=== PATIENT | male | born 1940 | race Caucasian/White ===

== ENCOUNTER 2019-01-05 20:07 | Emergency (ER) | payer MEDICARE, BC ==
[2019-01-05] MEDS ORDERED: Cephalexin 500 MG Cap PO ONE (20:43)
--- NOTE | 2019-01-05 20:46 | EDM.PDOC ---
ED HPI GENERAL MEDICAL PROBLEM - General Stated Complaint: HURT HAND Time Seen by Provider: 01/05/19 20:30 Source of Information: Reports: Patient History Limitations: Reports: No Limitations - History of Present Illness INITIAL COMMENTS - FREE TEXT/NARRATIVE: Was fishing off a bridge tonight, caught his line and pulled hard, as it flung back adamant about her struck the back of his hand hard. Bled quite significantly for a little while, dark red and purple blood. No significant swelling on the back of his hand so he was worried and came in to be evaluated. Very small open abrasion with a large hematoma underlying. Only on aspirin as a blood thinner. He has pain in his bruise area and the skin feels tight, but he can move all of his fingers without difficulty and has full sensation throughout his hand. - Related Data Allergies Allergy/AdvReac Type Severity Reaction Status Date / Time No Known Allergies Allergy Verified 04/10/13 13:46 Home Meds: Home Meds Allopurinol [Zyloprim] 100 mg PO DAILY 04/10/13 [History] Alprostadil 1 gm RECTAL DAILY PRN 04/10/13 [History] Benzonatate [Tessalon Perle] 100 mg PO TID PRN 04/10/13 [History] Clotrimazole/Betamethasone Dip [Lotrisone Cream] 15 gm TP 04/10/13 [History] Doxazosin Mesylate [Cardura] 4 mg PO DAILY 04/10/13 [History] Finasteride [Proscar] 5 mg PO DAILY 04/10/13 [History] Furosemide [Lasix] 40 mg PO DAILY 04/10/13 [History] Hydrocodone/Acetaminophen [[place] 5-325] 1 tab PO Q4H PRN 04/10/13 [History] Levothyroxine [Synthroid] 50 mcg PO DAILY 04/10/13 [History] Pilocarpine HCl [Salagen] 5 mg PO TID 04/10/13 [History] Pioglitazone [Actos] 45 mg PO DAILY 04/10/13 [History] Potassium Chloride [Potassium Chloride Solution] 10 meq PO DAILY 04/10/13 [ History] Simvastatin [Zocor] 20 mg PO BEDTIME 04/10/13 [History] SitaGLIPtin [Januvia] 100 mg PO DAILY 04/10/13 [History] metFORMIN [Glucophage] 1,000 mg PO BIDM 04/10/13 [History] Aspirin [Adult Low Dose Aspirin EC] 81 mg PO DAILY 04/13/13 [History] cephALEXin [Keflex] 500 mg PO BID 2 Days #4 cap 01/05/19 [Rx] Social & Family History - Family History Family Medical History: Noncontributory ED ROS GENERAL - Review of Systems Review Of Systems: ROS reveals no pertinent complaints other than HPI. ED EXAM, GENERAL - Physical Exam Exam: See Below Free Text/Narrative:: Gen.: Alert, very pleasant no acute distress. There is a 3 x 4 cm hematoma on the dorsal surface of the hand with a 2-3 mm hole where the skin broke. It is not actively bleeding. He is able to flex and extend all of his fingers without difficulty and has full strength in all all of his fingers and thumb. Likewise he is able to flex and extend the wrist without difficulty. He does not note significant pain, although does complain that the skin is tight. Sensation is intact to both sides of all 5 of his fingers. Course - Vital Signs Text/Narrative:: Superficial wound, given mechanism I don't think that an x-ray is indicated as he has no pain with movement of his fingers or hand, just skin tightness. He cleansed the wound with hydrogen peroxide shortly after it happened, nursing instructed to soak in Hibiclens here then bandaged with Steri-Strips. Last tetanus unknown so we'll update tonight. Plan is to give 1 dose of Keflex prior to departure and then 2 days given the size of the hematoma I think it is appropriate to prophylax it. Last Recorded V/S: Last Vital Signs Temp 36.6 C 01/05/19 20:10 Pulse 58 L 01/05/19 20:10 Resp 20 01/05/19 20:10 BP 134/59 L 01/05/19 20:10 Pulse Ox 100 01/05/19 20:10 - Orders/Labs/Meds Orders: Active Orders 24 hr Category Date Time Status Vaccines to be Administered [RC] PER UNIT ROUTINE Care 01/05/19 20:50 Active Meds: Medications Discontinued Medications Generic Name Dose Route Start Last Admin Trade Name Freq PRN Reason Stop Dose Admin Cephalexin 500 mg 01/05/19 20:43 01/05/19 21:01 Keflex PO 01/05/19 20:44 500 mg ONETIME ONE Administration Tetanus/Diphtheria Toxoids 0.5 ml 01/05/19 20:50 01/05/19 21:00 Tenivac IM 01/05/19 20:51 0.5 ml .ONCE ONE Administration - Re-Assessments/Exams Free Text/Narrative Re-Assessment/Exam: 01/05/19 21:12 hand soaked in hibiclens, then bandaged with steri-strips and covered with ointment and bandaid. Wound care instructions given and discussed signs of infection. Tetanus updated. 2 days prophylaxis of keflex ordered. Patient expresses understanding of instructions and all questions answered. Departure - Departure Time of Disposition: 21:10 Disposition: Home, Self-Care 01 Condition: Good Clinical Impression: Contusion - Discharge Information *PRESCRIPTION DRUG MONITORING PROGRAM REVIEWED*: Not Applicable *COPY OF PRESCRIPTION DRUG MONITORING REPORT IN PATIENT TI: Not Applicable Prescriptions: cephALEXin [Keflex] 500 mg PO BID 2 Days #4 cap Referrals: PCP,None [Primary Care Provider] - Additional Instructions: steri strips will come off on their own in 4-5 days change bandaid as needed like 1X/day in evening and appy new ointment to keep wound protected. Be careful not to tear skin when removing bandaid. if worsening pain, bright colored redness around the wound, pus, or significant increase in swelling should get rechecked If pain when moving her fingers, hand or wrist you should return to the ED. Also return if there is red streaking up her arm or any difficulty and swelling in any of the joints. tetanus updated today antibiotic given to help prevent infection, take 1 dose each morning and night for next two days enjoy your fishing and be careful of the big one ;) - My Orders Last 24 Hours: My Active Orders 01/05/19 20:50 Vaccines to be Administered [RC] PER UNIT ROUTINE - Assessment/Plan Last 24 Hours: My Active Orders 01/05/19 20:50 Vaccines to be Administered [RC] PER UNIT ROUTINE
[2019-01-05 20:49] VITALS: BP 134/59
[2019-01-05] MEDS ORDERED: Diphtheria/Tetanus Toxoids,Adult (Td) 0.5 ML SDV IM ONE (20:50)
== END 2019-01-05 21:25 | disposition home or self-care (01) ==
LOC: FB.ED 20:07
DX: S60.221A Contusion of right hand, initial encounter (principal); Z79.899 Other long term (current) drug therapy; X58.XXXA Exposure to other specified factors, initial encounter
CPT/HCPCS: 90471; 90714; 99283; A9270

== ENCOUNTER 2019-10-18 10:44 | Emergency (ER) | payer MEDICARE, BC ==
[2019-10-18] MEDS ORDERED: Sodium Chloride 0.9% 500 ML IV ONE ×2 (11:02→11:30)
[2019-10-18] MEDS ORDERED: Sodium Chloride 0.9% 10 ML Syringe FLUSH PRN (11:02)
--- NOTE | 2019-10-18 11:06 | EDM.PDOC ---
ED HPI GENERAL MEDICAL PROBLEM - General Chief Complaint: Cardiovascular Problem Stated Complaint: LOW BLOOD PRESSURE,PULSE HIGH Time Seen by Provider: 10/18/19 11:04 Source of Information: Reports: Patient History Limitations: Reports: No Limitations - History of Present Illness INITIAL COMMENTS - FREE TEXT/NARRATIVE: Patient awoke with low blood pressure (SBP 70-80) and rapid heart rate (188). He complains of mild dizziness. Denies chest pain, shortness of breath, fevers, chills, abdominal pain, or N/V/D. He has a slight cough after eating, but this usually quickly resolves. Lasix and Metoprolol were discontinued two days ago due to low BP. Patient has a h/o T2DM, hyperlipidemia, hypothyroidism, and metastatic urethral carcinoma. Last chemo was 2 weeks ago. Denies recent travel or exposure to known COVID-19 PUI. Onset: Today Severity: Moderate - Related Data Allergies Allergy/AdvReac Type Severity Reaction Status Date / Time No Known Allergies Allergy Verified 01/06/19 00:57 Home Meds: Home Meds Benzonatate [Tessalon Perle] 100 mg PO TID PRN 04/10/13 [History] Clotrimazole/Betamethasone Dip [Lotrisone Cream] 15 gm TP ASDIRECTED 04/10/13 [ History] Doxazosin Mesylate [Cardura] 2 mg PO DAILY 04/10/13 [History] Finasteride [Proscar] 5 mg PO DAILY 04/10/13 [History] Hydrocodone/Acetaminophen [[place] 5-325] 1 tab PO Q4H PRN 04/10/13 [History] Pilocarpine HCl [Salagen] 5 mg PO TID 04/10/13 [History] SitaGLIPtin [Januvia] 100 mg PO DAILY 04/10/13 [History] metFORMIN [Glucophage] 1,000 mg PO BIDM 04/10/13 [History] Levothyroxine [Synthroid] 100 mcg PO ACBREAKFAST 10/18/19 [History] Pioglitazone [Actos] 15 mg PO DAILY 10/18/19 [History] Past Medical History Cardiovascular History: Reports: High Cholesterol, Hypertension. Denies: Arrhythmia, Heart Failure Endocrine/Metabolic History: Reports: Diabetes, Type II Oncologic (Cancer) History: Reports: Other (See Below) (Urethral) - Past Surgical History HEENT Surgical History: Reports: Cataract Surgery GI Surgical History: Reports: Other (See Below) Other GI Surgeries/Procedures: States history of hernia surgery. Neurological Surgical History: Reports: Other (See Below) Other Neurological Surgeries/Procedures: Back surgery in [place]. Oncologic Surgical History: Reports: Other (See Below) Other Oncologic Surgeries/Procedures: Cancer of jaw area. Social & Family History - Family History Family Medical History: Noncontributory - Tobacco Use Smoking Status *Q: Former Smoker - Alcohol Use Alcohol Use History: No ED ROS GENERAL - Review of Systems Review Of Systems: Comprehensive ROS is negative, except as noted in HPI. ED EXAM, GENERAL - Physical Exam Exam: See Below Exam Limited By: No Limitations General Appearance: Alert, WD/WN, No Apparent Distress Nose: Normal Inspection Throat/Mouth: Normal Inspection, No Airway Compromise Head: Atraumatic, Normocephalic Neck: Supple Respiratory/Chest: No Respiratory Distress, Lungs Clear, Normal Breath Sounds Cardiovascular: No Murmur, Tachycardia GI/Abdominal: Normal Bowel Sounds, Soft, Non-Tender, No Distention Back Exam: Full Range of Motion Extremities: Normal Range of Motion, Pedal Edema Neurological: Alert, Oriented, No Motor/Sensory Deficits Psychiatric: Normal Affect, Normal Mood Skin Exam: Warm, Dry, Intact EKG INTERPRETATION EKG Date: 10/18/19 Time: 10:58 Rhythm: A-Fib Rate (Beats/Min): 129 [place]: Normal P-Wave: Absent QRS: Normal ST-T: Depressed (minimal) QT: Normal Comparison: NA - No Prior EKG Course - Vital Signs Last Recorded V/S: Last Vital Signs Temp 36.9 C 10/18/19 10:55 Pulse 125 H 10/18/19 13:27 Resp 24 H 10/18/19 14:27 BP 94/64 10/18/19 14:27 Pulse Ox 97 10/18/19 14:27 - Orders/Labs/Meds Orders: Active Orders 24 hr Category Date Time Status EKG Documentation Completion [RC] ASDIRECTED Care 10/18/19 11:01 Active CXR [Chest 1V Frontal] [CR] Stat Exams 10/18/19 11:01 Taken CULTURE BLOOD [BC] Urgent Lab 10/18/19 11:35 Received CULTURE BLOOD [BC] Urgent Lab 10/18/19 11:40 Received THYROXINE (T4) FREE, DIRECT, S Stat Lab 10/18/19 11:40 Received Sodium Chloride 0.9% [Normal Saline] 1,000 ml Med 10/18/19 14:30 Active IV ASDIRECTED Sodium Chloride 0.9% [Saline Flush] Med 10/18/19 11:02 Active 10 ml FLUSH ASDIRECTED PRN Blood Culture x2 Reflex Set [OM.PC] Urgent Oth 10/18/19 11:01 Ordered Isolation [COMM] Routine Oth 10/18/19 11:03 Ordered Saline Lock Insert [OM.PC] Routine Oth 10/18/19 11:02 Ordered EKG 12 Lead [EK] Stat Ther 10/18/19 11:00 Ordered Medication Orders Sodium Chloride (Normal Saline) 1,000 mls @ 100 mls/hr IV ASDIRECTED BEN Last Admin: 10/18/19 14:28 Dose: 100 mls/hr Sodium Chloride (Saline Flush) 10 ml FLUSH ASDIRECTED PRN PRN Reason: Keep Vein Open Labs: Laboratory Tests 10/18/19 10/18/19 10/18/19 Range/Units 11:35 11:35 11:35 WBC 8.8 (4.5-12.0) X10-3/uL RBC 3.78 L (4.30-5.75) x10(6)uL Hgb 10.8 L (13.5-17.8) g/dL Hct 33.0 (30.0-51.3) % MCV 87.3 (80-96) fL MCH 28.6 (27.7-33.6) pg MCHC 32.7 (32.2-35.4) g/dL RDW 16.5 H (11.5-15.5) % Plt Count 293 (125-369) X10(3)uL MPV 6.6 L (7.4-10.4) fL Add Manual Diff Yes Neutrophils % (Manual) 84 H (46-82) % Lymphocytes % (Manual) 7 L (13-37) % Monocytes % (Manual) 8 (4-12) % Eosinophils % (Manual) 1 (0-5) % Anisocytosis Few Sodium 142 (135-145) mmol/L Potassium 5.0 (3.5-5.3) mmol/L Chloride 104 (100-110) mmol/L Carbon Dioxide 27 (21-32) mmol/L BUN 12 (7-18) mg/dL Creatinine 0.9 (0.70-1.30) mg/dL Est Cr Clr Drug Dosing 64.39 mL/min Estimated GFR (MDRD) > 60 (>60) BUN/Creatinine Ratio 13.3 (9-20) Glucose 187 H (80-116) mg/dL Lactic Acid 0.3 L (0.4-2.0) mmol/L Calcium 9.2 (8.6-10.2) mg/dL Magnesium (1.8-2.5) mg/dL Total Bilirubin 0.4 (0.1-1.3) mg/dL AST 22 (5-25) IU/L ALT 22 D (12-36) U/L Alkaline Phosphatase 123 H (56-112) IU/L Troponin I (4.0-60.3) pg/mL Total Protein 6.1 (6.0-8.0) g/dL Albumin 2.9 L (3.2-4.6) g/dL Globulin 3.2 g/dL Albumin/Globulin Ratio 0.9 TSH, Ultra Sensitive (0.36-3.74) IU/mL Urine Color (YELLOW) Urine Appearance (CLEAR) Urine pH (5.0-6.5) Ur Specific [place] (1.010-1.025) Urine Protein (NEGATIVE) mg/dL Urine Glucose (UA) (NORMAL) mg/dL Urine Ketones (NEGATIVE) mg/dL Urine Occult Blood (NEGATIVE) Urine Nitrite (NEGATIVE) Urine Bilirubin (NEGATIVE) Urine Urobilinogen (NEGATIVE) mg/dL Ur Leukocyte Esterase (NEGATIVE) Urine WBC (0-5) Ur Squamous Epith Cells (NS,R,O) Urine Bacteria (NS) 10/18/19 10/18/19 10/18/19 Range/Units 11:35 11:35 11:35 WBC (4.5-12.0) X10-3/uL RBC (4.30-5.75) x10(6)uL Hgb (13.5-17.8) g/dL Hct (30.0-51.3) % MCV (80-96) fL MCH (27.7-33.6) pg MCHC (32.2-35.4) g/dL RDW (11.5-15.5) % Plt Count (125-369) X10(3)uL MPV (7.4-10.4) fL Add Manual Diff Neutrophils % (Manual) (46-82) % Lymphocytes % (Manual) (13-37) % Monocytes % (Manual) (4-12) % Eosinophils % (Manual) (0-5) % Anisocytosis Sodium (135-145) mmol/L Potassium (3.5-5.3) mmol/L Chloride (100-110) mmol/L Carbon Dioxide (21-32) mmol/L BUN (7-18) mg/dL Creatinine (0.70-1.30) mg/dL Est Cr Clr Drug Dosing mL/min Estimated GFR (MDRD) (>60) BUN/Creatinine Ratio (9-20) Glucose (80-116) mg/dL Lactic Acid (0.4-2.0) mmol/L Calcium (8.6-10.2) mg/dL Magnesium 1.1 L* (1.8-2.5) mg/dL Total Bilirubin (0.1-1.3) mg/dL AST (5-25) IU/L ALT (12-36) U/L Alkaline Phosphatase (56-112) IU/L Troponin I 41.1 (4.0-60.3) pg/mL Total Protein (6.0-8.0) g/dL Albumin (3.2-4.6) g/dL Globulin g/dL Albumin/Globulin Ratio TSH, Ultra Sensitive 5.22 H (0.36-3.74) IU/mL Urine Color (YELLOW) Urine Appearance (CLEAR) Urine pH (5.0-6.5) Ur Specific [place] (1.010-1.025) Urine Protein (NEGATIVE) mg/dL Urine Glucose (UA) (NORMAL) mg/dL Urine Ketones (NEGATIVE) mg/dL Urine Occult Blood (NEGATIVE) Urine Nitrite (NEGATIVE) Urine Bilirubin (NEGATIVE) Urine Urobilinogen (NEGATIVE) mg/dL Ur Leukocyte Esterase (NEGATIVE) Urine WBC (0-5) Ur Squamous Epith Cells (NS,R,O) Urine Bacteria (NS) 10/18/19 Range/Units 12:06 WBC (4.5-12.0) X10-3/uL RBC (4.30-5.75) x10(6)uL Hgb (13.5-17.8) g/dL Hct (30.0-51.3) % MCV (80-96) fL MCH (27.7-33.6) pg MCHC (32.2-35.4) g/dL RDW (11.5-15.5) % Plt Count (125-369) X10(3)uL MPV (7.4-10.4) fL Add Manual Diff Neutrophils % (Manual) (46-82) % Lymphocytes % (Manual) (13-37) % Monocytes % (Manual) (4-12) % Eosinophils % (Manual) (0-5) % Anisocytosis Sodium (135-145) mmol/L Potassium (3.5-5.3) mmol/L Chloride (100-110) mmol/L Carbon Dioxide (21-32) mmol/L BUN (7-18) mg/dL Creatinine (0.70-1.30) mg/dL Est Cr Clr Drug Dosing mL/min Estimated GFR (MDRD) (>60) BUN/Creatinine Ratio (9-20) Glucose (80-116) mg/dL Lactic Acid (0.4-2.0) mmol/L Calcium (8.6-10.2) mg/dL Magnesium (1.8-2.5) mg/dL Total Bilirubin (0.1-1.3) mg/dL AST (5-25) IU/L ALT (12-36) U/L Alkaline Phosphatase (56-112) IU/L Troponin I (4.0-60.3) pg/mL Total Protein (6.0-8.0) g/dL Albumin (3.2-4.6) g/dL Globulin g/dL Albumin/Globulin Ratio TSH, Ultra Sensitive (0.36-3.74) IU/mL Urine Color Yellow (YELLOW) Urine Appearance Slightly cloudy (CLEAR) Urine pH 7.0 H (5.0-6.5) Ur Specific [place] 1.005 L (1.010-1.025) Urine Protein Trace (NEGATIVE) mg/dL Urine Glucose (UA) 250 H (NORMAL) mg/dL Urine Ketones Negative (NEGATIVE) mg/dL Urine Occult Blood Negative (NEGATIVE) Urine Nitrite Negative (NEGATIVE) Urine Bilirubin Negative (NEGATIVE) Urine Urobilinogen Normal (NEGATIVE) mg/dL Ur Leukocyte Esterase Negative (NEGATIVE) Urine WBC 0-5 (0-5) Ur Squamous Epith Cells Few H (NS,R,O) Urine Bacteria Few H (NS) Meds: Medications Generic Name Dose Route Start Last Admin Trade Name Daniel PRN Reason Stop Dose Admin Sodium Chloride 1,000 mls @ 100 mls/hr 10/18/19 14:30 10/18/19 14:28 Normal Saline IV 100 mls/hr ASDIRECTED BEN Administration Sodium Chloride 10 ml 10/18/19 11:02 Saline Flush FLUSH ASDIRECTED PRN Keep Vein Open Discontinued Medications Generic Name Dose Route Start Last Admin Trade Name Daniel PRN Reason Stop Dose Admin Sodium Chloride 500 mls @ 500 mls/hr 10/18/19 11:02 10/18/19 11:29 Normal Saline IV 10/18/19 12:01 500 mls/hr .BOLUS ONE Administration Sodium Chloride 500 mls @ 500 mls/hr 10/18/19 11:30 10/18/19 12:38 Normal Saline IV 10/18/19 12:29 500 mls/hr .BOLUS ONE Administration Magnesium Sulfate 2 gm/ 104 mls @ 100 mls/hr 10/18/19 12:11 10/18/19 12:40 Dextrose/Water IV 10/18/19 13:13 Not Given ONETIME ONE Magnesium Sulfate Confirm 10/18/19 12:15 10/18/19 12:22 Magnesium Sulfate In Water Premix Administered 10/18/19 12:16 25 mls/hr Dose Administration 50 mls @ as directed .ROUTE .STK-MED ONE Metoprolol Tartrate 5 mg 10/18/19 11:14 Lopressor IVPUSH 10/18/19 11:15 ONETIME ONE Metoprolol Tartrate 2.5 mg 10/18/19 12:08 10/18/19 13:27 Lopressor IVPUSH 10/18/19 12:09 5 mg ONETIME ONE Administration - Radiology Interpretation Free Text/Narrative:: CXR: Stable elevation of the right hemidiaphragm. New right perihilar/ cardiophrenic angle consolidation which may reflect inflammatory pneumonitis or atelectasis. Possible additional infiltrate at the left suprahilar region versus superimposition of the overlapping opacities. Heart size is stable. No significant pleural fluid. No evidence of pneumothorax. (Dr. Bo Lord) - Re-Assessments/Exams Free Text/Narrative Re-Assessment/Exam: 10/18/19 13:49 Heart rate did not improve after Magnesium Sulfate 2g IV. HR transiently improve to 90's (Afib) after Lopressor 2.5 mg IV, HR now 120's and BP 98/57. 10/18/19 14:38 BP 94/64, HR 122. Dr. Cassidy ([facility]) accepts patient for transfer, will transport by ALS ground. Departure - Departure Time of Disposition: 14:38 Disposition: DC/Tfer to [facility] 02 Reason for Transfer *Q: Other Condition: Fair Clinical Impression: Atrial fibrillation with RVR, Hypomagnesemia Referrals: Simba Gomez MD [Primary Care Provider] - Forms: ED Department Discharge Sepsis Event Note - Focused Exam Vital Signs: Vital Signs Temp Pulse Pulse Resp BP BP Pulse Ox 10/18/19 14:27 24 H 94/64 97 10/18/19 14:02 100/68 95 10/18/19 13:40 101/65 10/18/19 13:27 125 H 114/69 10/18/19 13:23 30 H 114/69 96 10/18/19 13:01 26 H 109/61 96 10/18/19 12:43 26 H 102/59 L 94 L 10/18/19 12:23 24 H 101/57 L 95 10/18/19 12:06 127 H 24 H 114/53 L 93 L 10/18/19 12:00 127 H 28 H 114/53 L 91 L 10/18/19 10:55 36.9 C 129 H 26 H 119/89 93 L Date Exam was Performed: 10/18/19 Time Exam was Performed: 14:38 - My Orders Last 24 Hours: My Active Orders 10/18/19 11:00 EKG 12 Lead [EK] Stat 10/18/19 11:01 EKG Documentation Completion [RC] ASDIRECTED CXR [Chest 1V Frontal] [CR] Stat Blood Culture x2 Reflex Set [OM.PC] Urgent 10/18/19 11:02 Sodium Chloride 0.9% [Saline Flush] 10 ml FLUSH ASDIRECTED PRN Saline Lock Insert [OM.PC] Routine 10/18/19 11:03 Isolation [COMM] Routine 10/18/19 11:35 CULTURE BLOOD [BC] Urgent 10/18/19 11:40 CULTURE BLOOD [BC] Urgent THYROXINE (T4) FREE, DIRECT, S Stat 10/18/19 14:30 Sodium Chloride 0.9% [Normal Saline] 1,000 ml IV ASDIRECTED - Assessment/Plan Last 24 Hours: My Active Orders 10/18/19 11:00 EKG 12 Lead [EK] Stat 10/18/19 11:01 EKG Documentation Completion [RC] ASDIRECTED CXR [Chest 1V Frontal] [CR] Stat Blood Culture x2 Reflex Set [OM.PC] Urgent 10/18/19 11:02 Sodium Chloride 0.9% [Saline Flush] 10 ml FLUSH ASDIRECTED PRN Saline Lock Insert [OM.PC] Routine 10/18/19 11:03 Isolation [COMM] Routine 10/18/19 11:35 CULTURE BLOOD [BC] Urgent 10/18/19 11:40 CULTURE BLOOD [BC] Urgent THYROXINE (T4) FREE, DIRECT, S Stat 10/18/19 14:30 Sodium Chloride 0.9% [Normal Saline] 1,000 ml IV ASDIRECTED
[2019-10-18] MEDS ORDERED: Metoprolol Tartrate 5 MG/5 ML SDV IVPUSH ONE ×2 (11:14→12:08)
[2019-10-18] MEDS ORDERED: Magnesium Sulfate/Water 50 ML ONE (12:15)
[2019-10-18 13:28] VITALS: PULSE 125
[2019-10-18] MEDS ORDERED: Sodium Chloride 0.9% 1,000 ML IV SCH (14:30)
[2019-10-18 14:49] VITALS: BP 112/75
== END 2019-10-18 15:15 ==
LOC: FB.ED 10:44
DX: I48.91 Unspecified atrial fibrillation (principal); E83.42 Hypomagnesemia; E11.9 Type 2 diabetes mellitus without complications; I10 Essential (primary) hypertension; E78.00 Pure hypercholesterolemia, unspecified; Z79.84 Long term (current) use of oral hypoglycemic drugs; Z79.899 Other long term (current) drug therapy
CPT/HCPCS: 36415; 71045; 80053; 81001; 83605; 83735; 84439; 84443; 84484; 85025; 87040; 87804; 87804-59; 93005; 93010; 96361; 96374; 99285; 99285-25; J3475; J3490; J7030; J7040; J7060

== ENCOUNTER 2020-06-08 17:42 | Emergency (ER) | payer MEDICARE, BC ==
--- NOTE | 2020-06-08 18:54 | EDM.PDOC ---
ED HPI GENERAL MEDICAL PROBLEM - General Stated Complaint: LACERATION FOREHEAD Time Seen by Provider: 06/08/20 17:50 Source of Information: Reports: Patient History Limitations: Reports: No Limitations - History of Present Illness INITIAL COMMENTS - FREE TEXT/NARRATIVE: Patient presented to the ED because he tripped and fell and landed face down to a concretes. He sustained a 3cm laceration over the RT restorationist. There is no LOC after the fall. There is no headache but c/o neck pain. - Related Data Allergies Allergy/AdvReac Type Severity Reaction Status Date / Time No Known Allergies Allergy Verified 05/02/20 11:06 Home Meds: Home Meds Benzonatate [Tessalon Perle] 100 mg PO TID PRN 04/10/13 [History] Clotrimazole/Betamethasone Dip [Lotrisone Cream] 15 gm TP ASDIRECTED 04/10/13 [History] Doxazosin Mesylate [Cardura] 2 mg PO DAILY 04/10/13 [History] Finasteride [Proscar] 5 mg PO DAILY 04/10/13 [History] Hydrocodone/Acetaminophen [[place] 5-325] 1 tab PO Q4H PRN 04/10/13 [History] Pilocarpine HCl [Salagen] 5 mg PO TID 04/10/13 [History] SitaGLIPtin [Januvia] 100 mg PO DAILY 04/10/13 [History] metFORMIN [Glucophage] 1,000 mg PO BIDM 04/10/13 [History] Levothyroxine [Synthroid] 100 mcg PO ACBREAKFAST 10/18/19 [History] Pioglitazone [Actos] 15 mg PO DAILY 10/18/19 [History] Past Medical History Cardiovascular History: Reports: High Cholesterol, Hypertension. Denies: Arrhythmia, Heart Failure Endocrine/Metabolic History: Reports: Diabetes, Type II Oncologic (Cancer) History: Reports: Other (See Below) (Urethral) - Past Surgical History HEENT Surgical History: Reports: Cataract Surgery GI Surgical History: Reports: Other (See Below) Other GI Surgeries/Procedures: States history of hernia surgery. Neurological Surgical History: Reports: Other (See Below) Other Neurological Surgeries/Procedures: Back surgery in [place]. Oncologic Surgical History: Reports: Other (See Below) Other Oncologic Surgeries/Procedures: Cancer of jaw area. Social & Family History - Family History Family Medical History: No Pertinent Family History - Caffeine Use Caffeine Use: Reports: None ED ROS GENERAL - Review of Systems Review Of Systems: See Below Constitutional: Reports: No Symptoms HEENT: Reports: No Symptoms Respiratory: Reports: No Symptoms Cardiovascular: Reports: No Symptoms Endocrine: Reports: No Symptoms GI/Abdominal: Reports: No Symptoms : Reports: No Symptoms Musculoskeletal: Reports: No Symptoms Skin: Reports: No Symptoms Neurological: Reports: No Symptoms Psychiatric: Reports: No Symptoms Hematologic/Lymphatic: Reports: No Symptoms Immunologic: Reports: No Symptoms ED EXAM, HEAD INJURY - Physical Exam Exam: See Below Exam Limited By: No Limitations General Appearance: Alert Head: Atraumatic, Normocephalic Ears: Normal External Exam, Normal Canal, Hearing Grossly Normal Nose: Normal Inspection, Normal Mucousa, No Blood Throat/Mouth: Normal Inspection, Normal Lips, Normal Teeth Back Exam: Normal Inspection, Full Range of Motion Extremities: Normal Inspection, Normal Range of Motion Neurologic: Oriented x 3 ED LACERATION/WOUND & CARLOS ENRIQUE PROC - Laceration/Wound Repair Right Lateral Face Lac/wound length in cm: 3 Appearance: Subcutaneous Distal NVT: Neuro & Vascular Intact Skin Prep: Chlorhexidine (Hibiciens) Closed with: Dermabond Course - Vital Signs Text/Narrative:: Head and C-spine CT-see result - Orders/Labs/Meds Orders: Active Orders 24 hr Category Date Time Status Cervical Spine wo Cont [CT] Stat Exams 06/08/20 18:28 Taken Head wo Cont [CT] Stat Exams 06/08/20 18:00 Taken Departure - Departure Time of Disposition: 19:30 Disposition: Home, Self-Care 01 Condition: Good Clinical Impression: Head injury, Laceration - Discharge Information Instructions: Head Injury, Adult, Laceration Care, Adult Referrals: Simba Gomez MD [Primary Care Provider] - Additional Instructions: Please read discharge instructions on head injury and laceration Take tylenol 1000 mg every 8 hours as needed for ache and pain No need to apply an antibiotic ointment , the glue is medicated Keep the wound dry for at least 3-5 days Follow up as needed - My Orders Last 24 Hours: My Active Orders 06/08/20 18:00 Head wo Cont [CT] Stat 06/08/20 18:28 Cervical Spine wo Cont [CT] Stat - Assessment/Plan Last 24 Hours: My Active Orders 06/08/20 18:00 Head wo Cont [CT] Stat 06/08/20 18:28 Cervical Spine wo Cont [CT] Stat
[2020-06-08 22:39] VITALS: BP 124/56; PULSE 64
== END 2020-06-08 19:45 | disposition home or self-care (01) ==
LOC: FB.ED 17:42
DX: S01.81XA Laceration without foreign body of other part of head, initial encounter (principal); S09.90XA Unspecified injury of head, initial encounter; I10 Essential (primary) hypertension; E11.9 Type 2 diabetes mellitus without complications; Z79.84 Long term (current) use of oral hypoglycemic drugs; Z79.899 Other long term (current) drug therapy; W01.0XXA Fall on same level from slipping, tripping and stumbling without subsequent striking against object, initial encounter
CPT/HCPCS: 12013; 70450; 72125; 99282; 99283-25

== ENCOUNTER 2020-06-10 08:15 | Emergency (ER) | payer MEDICARE, BC ==
--- NOTE | 2020-06-10 08:23 | EDM.PDOC ---
ED HPI GENERAL MEDICAL PROBLEM - General Chief Complaint: General Stated Complaint: WEAKNESS Time Seen by Provider: 06/10/20 08:22 Source of Information: Reports: Patient, Old Records History Limitations: Reports: No Limitations - History of Present Illness INITIAL COMMENTS - FREE TEXT/NARRATIVE: Marcial returns to [facility] ED with family following a fall at home. He apparently tripped over something in the driveway and went down, unwitnessed, ED note from June 08 reviewed. He is reporting generalized weakness in his legs. Family noted a loss of appetite, although he does consume supplemental beverages tid. 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 He does have a cane and walker, but doesn't always use these supports. - Related Data Allergies Allergy/AdvReac Type Severity Reaction Status Date / Time No Known Allergies Allergy Verified 06/08/20 19:23 Home Meds: Home Meds Benzonatate [Tessalon Perle] 100 mg PO TID PRN 04/10/13 [History] Clotrimazole/Betamethasone Dip [Lotrisone Cream] 15 gm TP ASDIRECTED 04/10/13 [History] Doxazosin Mesylate [Cardura] 4 mg PO DAILY 04/10/13 [History] Finasteride [Proscar] 5 mg PO DAILY 04/10/13 [History] Hydrocodone/Acetaminophen [[place] 5-325] 1 tab PO Q4H PRN 04/10/13 [History] Pilocarpine HCl [Salagen] 5 mg PO TID 04/10/13 [History] SitaGLIPtin [Januvia] 100 mg PO DAILY 04/10/13 [History] metFORMIN [Glucophage] 1,000 mg PO BIDM 04/10/13 [History] Levothyroxine [Synthroid] 150 mcg PO ACBREAKFAST 10/18/19 [History] Pioglitazone [Actos] 15 mg PO DAILY 10/18/19 [History] Apixaban [Eliquis] 5 mg BID 06/08/20 [History] oxyCODONE 5 mg Q6H PRN 06/08/20 [History] Past Medical History Cardiovascular History: Reports: High Cholesterol, Hypertension. Denies: Arrhythmia, Heart Failure Genitourinary History: Reports: Other (See Below) Other Genitourinary History: urethral CA Other Musculoskeletal History: hx CA with mets to R hip Endocrine/Metabolic History: Reports: Diabetes, Type II Hematologic History: Reports: Anticoagulation Therapy Oncologic (Cancer) History: Reports: Other (See Below) (Urethral) Other Oncologic History: hx urethral CA with mets R hip, hx malignant neoplasm of base of tongue - Past Surgical History HEENT Surgical History: Reports: Cataract Surgery GI Surgical History: Reports: Other (See Below) Other GI Surgeries/Procedures: States history of hernia surgery. Neurological Surgical History: Reports: Other (See Below) Other Neurological Surgeries/Procedures: Back surgery in [place]. Oncologic Surgical History: Reports: Other (See Below) Other Oncologic Surgeries/Procedures: Cancer of jaw area. Social & Family History - Family History Family Medical History: No Pertinent Family History - Caffeine Use Caffeine Use: Reports: None ED ROS GENERAL - Review of Systems Review Of Systems: See Below Constitutional: Reports: Malaise, Weakness, Decreased Appetite HEENT: Reports: No Symptoms Respiratory: Reports: No Symptoms Cardiovascular: Reports: No Symptoms Endocrine: Reports: Fatigue GI/Abdominal: Reports: Decreased Appetite : Reports: Other (decreased stream) Musculoskeletal: Reports: No Symptoms Skin: Reports: Wound (facial and scalp) Neurological: Reports: No Symptoms Psychiatric: Reports: No Symptoms Hematologic/Lymphatic: Reports: No Symptoms Immunologic: Reports: No Symptoms ED EXAM, GENERAL - Physical Exam Exam: See Below Exam Limited By: No Limitations General Appearance: Alert, WD/WN, No Apparent Distress, Thin Eye Exam: Right Eye: Normal Inspection (R periorbital ecchymoses, healing lacerations of eyebrow and forehead), Bilateral Eye: EOMI, PERRL Ears: Normal External Exam Nose: Other (nasal abrasion) Throat/Mouth: Normal Lips, Normal Voice, No Airway Compromise Head: Facial Swelling (R side ) Neck: Normal Inspection, Supple Respiratory/Chest: No Respiratory Distress, No Accessory Muscle Use, Chest Non- Tender, Decreased Breath Sounds, Prolonged Expiration Cardiovascular: Regular Rate, Rhythm, No Murmur GI/Abdominal: Normal Bowel Sounds, Soft, Non-Tender, No Organomegaly, No Distention, No Mass (Male) Exam: Deferred Rectal (Males) Exam: Deferred Back Exam: Normal Inspection Extremities: Other (disuse atrophy of UEs and LEs) Neurological: Alert, Oriented, Abnormal Gait Psychiatric: Flat Affect Skin Exam: Warm, Dry, Ecchymosis, Wound/Incision Lymphatic: No Adenopathy Course - Vital Signs Text/Narrative:: Following assessment, I obtained a 12 lead ekg, NSR and no acute changes; CMP noting Na 129, K 4.9, Troponin I 117.6 units, follow up Troponin I 104 units; UA noted 100 WBC/HPF, nitrites POS; UC set up; CBC noted Hgb 10.1 gms, WBC 7,300, plts adequate; Magnesium 1.0; I administered NS 2L over the next 2 hours, and MgSO4 2 gm over 1 hour. He has MgS04 tabs at home, but doesn't take them. Weakness is multifactorial. Elevated Troponin I is believed to be related to malignancy. Last Recorded V/S: Last Vital Signs Temp 36.6 C 06/10/20 13:35 Pulse 56 L 06/10/20 13:35 Resp 18 06/10/20 13:35 BP 135/57 L 06/10/20 13:35 Pulse Ox 97 06/10/20 13:35 - Orders/Labs/Meds Orders: Active Orders 24 hr Category Date Time Status Bladder Scan [RC] ASDIRECTED Care 06/10/20 09:01 Active EKG Documentation Completion [RC] ASDIRECTED Care 06/10/20 08:59 Active CULTURE URINE [RM] Stat Lab 06/10/20 09:05 Ordered SODIUM,URINE RANDOM [URCHEM] Stat Lab 06/10/20 13:49 Ordered Sodium Chloride 0.9% [Normal Saline] 1,000 ml Med 06/10/20 09:30 Active IV ASDIRECTED Sodium Chloride 0.9% [Saline Flush] Med 06/10/20 09:29 Active 10 ml FLUSH ASDIRECTED PRN Peripheral IV Insertion Adult [OM.PC] Routine Oth 06/10/20 09:29 Ordered EKG 12 Lead [EK] Routine Ther 06/10/20 08:59 Ordered Medication Orders Sodium Chloride (Normal Saline) 1,000 mls @ 999 mls/hr IV ASDIRECTED BEN Stop: 06/11/20 10:31 Last Admin: 06/10/20 09:43 Dose: 999 mls/hr Documented by: PAUL Sodium Chloride (Saline Flush) 10 ml FLUSH ASDIRECTED PRN PRN Reason: Keep Vein Open Last Admin: 06/10/20 09:42 Dose: 10 ml Documented by: PAUL Labs: Laboratory Tests 06/10/20 06/10/20 06/10/20 Range/Units 08:25 09:05 09:05 WBC 7.3 (3.2-10.1) x10-3/uL RBC 3.50 L (3.90-5.90) x10(6)uL Hgb 10.1 L (12.9-17.7) g/dL Hct 30.6 L (38.3-50.1) % MCV 87.5 (80.8-98.7) fL MCH 28.8 (27.0-33.3) pg MCHC 33.0 (28.7-35.3) g/dL RDW 15.6 H (12.4-15.0) % Plt Count 193 (117-477) x10(3)uL MPV 7.9 (6.7-11.0) fL Neut % (Auto) 79.5 H (40.3-71.8) % Lymph % (Auto) 9.3 L (15.8-45.3) % [place] % (Auto) 8.5 (5.5-15.2) % Eos % (Auto) 2.3 (0.1-6.8) % Baso % (Auto) 0.4 (0.3-3.8) % Neut # (Auto) 5.8 (1.7-6.9) x10-3/uL Lymph # (Auto) 0.7 (0.5-4.5) x10-3/uL [place] # (Auto) 0.6 (0.0-1.2) x10-3/uL Eos # (Auto) 0.2 (0.0-0.6) x10-3/uL Baso # (Auto) 0.0 (0.0-0.3) x10-3/uL Sodium 129 L D (135-145) mmol/L Potassium 4.9 (3.5-5.3) mmol/L Chloride 91 L D (100-110) mmol/L Carbon Dioxide 32 (21-32) mmol/L BUN 14 (7-18) mg/dL Creatinine 1.0 (0.70-1.30) mg/dL Est Cr Clr Drug Dosing TNP Estimated GFR (MDRD) > 60 (>60) BUN/Creatinine Ratio 14.0 (9-20) Glucose 116 (80-116) mg/dL Calcium 9.7 (8.6-10.2) mg/dL Magnesium (1.8-2.5) mg/dL Total Bilirubin 0.5 (0.1-1.3) mg/dL AST 28 H D (5-25) IU/L ALT 25 D (12-36) U/L Alkaline Phosphatase 92 (56-112) IU/L Troponin I (4.0-60.3) pg/mL NT-Pro-B Natriuret Pep (<=450) pg/mL Total Protein 6.8 (6.0-8.0) g/dL Albumin 3.2 (3.2-4.6) g/dL Globulin 3.6 g/dL Albumin/Globulin Ratio 0.9 Urine Color Yellow (YELLOW) Urine Appearance Slightly cloudy (CLEAR) Urine pH 7.0 H (5.0-6.5) Ur Specific [place] 1.010 (1.010-1.025) Urine Protein Negative (NEGATIVE) mg/dL Urine Glucose (UA) Normal (NORMAL) mg/dL Urine Ketones Negative (NEGATIVE) mg/dL Urine Occult Blood Trace (NEGATIVE) Urine Nitrite Negative (NEGATIVE) Urine Bilirubin Negative (NEGATIVE) Urine Urobilinogen Normal (NEGATIVE) mg/dL Ur Leukocyte Esterase Large H (NEGATIVE) Urine RBC 0-5 (0-5) Urine WBC >100 H (0-5) Ur Squamous Epith Cells Rare (NS,R,O) Urine Bacteria Moderate H (NS) SARS-CoV-2 RNA (ARCHANA) (NEGATIVE) 06/10/20 06/10/20 06/10/20 Range/Units 09:05 09:10 11:10 WBC (3.2-10.1) x10-3/uL RBC (3.90-5.90) x10(6)uL Hgb (12.9-17.7) g/dL Hct (38.3-50.1) % MCV (80.8-98.7) fL MCH (27.0-33.3) pg MCHC (28.7-35.3) g/dL RDW (12.4-15.0) % Plt Count (117-477) x10(3)uL MPV (6.7-11.0) fL Neut % (Auto) (40.3-71.8) % Lymph % (Auto) (15.8-45.3) % [place] % (Auto) (5.5-15.2) % Eos % (Auto) (0.1-6.8) % Baso % (Auto) (0.3-3.8) % Neut # (Auto) (1.7-6.9) x10-3/uL Lymph # (Auto) (0.5-4.5) x10-3/uL [place] # (Auto) (0.0-1.2) x10-3/uL Eos # (Auto) (0.0-0.6) x10-3/uL Baso # (Auto) (0.0-0.3) x10-3/uL Sodium 129 L (135-145) mmol/L Potassium 4.7 (3.5-5.3) mmol/L Chloride 93 L (100-110) mmol/L Carbon Dioxide 32 (21-32) mmol/L BUN 15 (7-18) mg/dL Creatinine 0.9 (0.70-1.30) mg/dL Est Cr Clr Drug Dosing 68.72 Estimated GFR (MDRD) > 60 (>60) BUN/Creatinine Ratio 16.7 (9-20) Glucose 116 (80-116) mg/dL Calcium 9.1 (8.6-10.2) mg/dL Magnesium (1.8-2.5) mg/dL Total Bilirubin (0.1-1.3) mg/dL AST (5-25) IU/L ALT (12-36) U/L Alkaline Phosphatase (56-112) IU/L Troponin I 117.6 H* (4.0-60.3) pg/mL NT-Pro-B Natriuret Pep (<=450) pg/mL Total Protein (6.0-8.0) g/dL Albumin (3.2-4.6) g/dL Globulin g/dL Albumin/Globulin Ratio Urine Color (YELLOW) Urine Appearance (CLEAR) Urine pH (5.0-6.5) Ur Specific [place] (1.010-1.025) Urine Protein (NEGATIVE) mg/dL Urine Glucose (UA) (NORMAL) mg/dL Urine Ketones (NEGATIVE) mg/dL Urine Occult Blood (NEGATIVE) Urine Nitrite (NEGATIVE) Urine Bilirubin (NEGATIVE) Urine Urobilinogen (NEGATIVE) mg/dL Ur Leukocyte Esterase (NEGATIVE) Urine RBC (0-5) Urine WBC (0-5) Ur Squamous Epith Cells (NS,R,O) Urine Bacteria (NS) SARS-CoV-2 RNA (ARCHANA) Negative (NEGATIVE) 06/10/20 06/10/20 06/10/20 Range/Units 11:10 11:10 11:10 WBC (3.2-10.1) x10-3/uL RBC (3.90-5.90) x10(6)uL Hgb (12.9-17.7) g/dL Hct (38.3-50.1) % MCV (80.8-98.7) fL MCH (27.0-33.3) pg MCHC (28.7-35.3) g/dL RDW (12.4-15.0) % Plt Count (117-477) x10(3)uL MPV (6.7-11.0) fL Neut % (Auto) (40.3-71.8) % Lymph % (Auto) (15.8-45.3) % [place] % (Auto) (5.5-15.2) % Eos % (Auto) (0.1-6.8) % Baso % (Auto) (0.3-3.8) % Neut # (Auto) (1.7-6.9) x10-3/uL Lymph # (Auto) (0.5-4.5) x10-3/uL [place] # (Auto) (0.0-1.2) x10-3/uL Eos # (Auto) (0.0-0.6) x10-3/uL Baso # (Auto) (0.0-0.3) x10-3/uL Sodium (135-145) mmol/L Potassium (3.5-5.3) mmol/L Chloride (100-110) mmol/L Carbon Dioxide (21-32) mmol/L BUN (7-18) mg/dL Creatinine (0.70-1.30) mg/dL Est Cr Clr Drug Dosing Estimated GFR (MDRD) (>60) BUN/Creatinine Ratio (9-20) Glucose (80-116) mg/dL Calcium (8.6-10.2) mg/dL Magnesium 1.0 L* (1.8-2.5) mg/dL Total Bilirubin (0.1-1.3) mg/dL AST (5-25) IU/L ALT (12-36) U/L Alkaline Phosphatase (56-112) IU/L Troponin I 104.1 H* (4.0-60.3) pg/mL NT-Pro-B Natriuret Pep 865 H (<=450) pg/mL Total Protein (6.0-8.0) g/dL Albumin (3.2-4.6) g/dL Globulin g/dL Albumin/Globulin Ratio Urine Color (YELLOW) Urine Appearance (CLEAR) Urine pH (5.0-6.5) Ur Specific [place] (1.010-1.025) Urine Protein (NEGATIVE) mg/dL Urine Glucose (UA) (NORMAL) mg/dL Urine Ketones (NEGATIVE) mg/dL Urine Occult Blood (NEGATIVE) Urine Nitrite (NEGATIVE) Urine Bilirubin (NEGATIVE) Urine Urobilinogen (NEGATIVE) mg/dL Ur Leukocyte Esterase (NEGATIVE) Urine RBC (0-5) Urine WBC (0-5) Ur Squamous Epith Cells (NS,R,O) Urine Bacteria (NS) SARS-CoV-2 RNA (ARCHANA) (NEGATIVE) Meds: Medications Generic Name Dose Route Start Last Admin Trade Name Freq PRN Reason Stop Dose Admin Sodium Chloride 1,000 mls @ 999 mls/hr 06/10/20 09:30 06/10/20 09:43 Normal Saline IV 06/11/20 10:31 999 mls/hr ASDIRECTED BEN Administration Sodium Chloride 10 ml 06/10/20 09:29 06/10/20 09:42 Saline Flush FLUSH 10 ml ASDIRECTED PRN Administration Keep Vein Open Discontinued Medications Generic Name Dose Route Start Last Admin Trade Name Freq PRN Reason Stop Dose Admin Magnesium Sulfate 2 gm in 50 mls @ 50 mls/hr 06/10/20 13:15 Magnesium Sulfate In Water Premix IV 06/10/20 14:14 ONETIME ONE Departure - Departure Time of Disposition: 14:45 Disposition: Home, Self-Care 01 Condition: Fair Clinical Impression: Hyponatremia, Hypomagnesemia - Discharge Information *PRESCRIPTION DRUG MONITORING PROGRAM REVIEWED*: Not Applicable *COPY OF PRESCRIPTION DRUG MONITORING REPORT IN PATIENT TI: Not Applicable Referrals: PCP,None [Ordering Only Provider] - Forms: ED Department Discharge Sepsis Event Note (ED) - Focused Exam Vital Signs: Vital Signs Temp Pulse Resp BP Pulse Ox 06/10/20 13:35 36.6 C 56 L 18 135/57 L 97 06/10/20 08:30 36.8 C 62 18 133/47 L 93 L - Problem List & Annotations (1) Hypomagnesemia SNOMED Code(s): 805232179 Code(s): E83.42 - HYPOMAGNESEMIA Status: Acute Current Visit: Yes Annotation/Comment:: Hypomagnesium may be contributing to leg weakness. I suggested a visit with PCP to obtain a Mg product suitable for PEG administration. (2) Hyponatremia SNOMED Code(s): 06650567 Code(s): E87.1 - HYPO-OSMOLALITY AND HYPONATREMIA Status: Acute Current Visit: Yes Annotation/Comment:: Hyponatremia may be contributing to leg weakness. I suggested NaCl tabs or suitable product that can be crushed and administered to PEG. Patient will discuss with PCP. - Problem List Review Problem List Initiated/Reviewed/Updated: Yes - My Orders Last 24 Hours: My Active Orders 06/10/20 08:59 EKG Documentation Completion [RC] ASDIRECTED EKG 12 Lead [EK] Routine 06/10/20 09:01 Bladder Scan [RC] ASDIRECTED 06/10/20 09:05 CULTURE URINE [RM] Stat 06/10/20 09:29 Sodium Chloride 0.9% [Saline Flush] 10 ml FLUSH ASDIRECTED PRN Peripheral IV Insertion Adult [OM.PC] Routine 06/10/20 09:30 Sodium Chloride 0.9% [Normal Saline] 1,000 ml IV ASDIRECTED 06/10/20 13:49 SODIUM,URINE RANDOM [URCHEM] Stat - Assessment/Plan Last 24 Hours: My Active Orders 06/10/20 08:59 EKG Documentation Completion [RC] ASDIRECTED EKG 12 Lead [EK] Routine 06/10/20 09:01 Bladder Scan [RC] ASDIRECTED 06/10/20 09:05 CULTURE URINE [RM] Stat 06/10/20 09:29 Sodium Chloride 0.9% [Saline Flush] 10 ml FLUSH ASDIRECTED PRN Peripheral IV Insertion Adult [OM.PC] Routine 06/10/20 09:30 Sodium Chloride 0.9% [Normal Saline] 1,000 ml IV ASDIRECTED 06/10/20 13:49 SODIUM,URINE RANDOM [URCHEM] Stat Plan: Follow up with PCP.
[2020-06-10] MEDS ORDERED: Sodium Chloride 0.9% 10 ML Syringe FLUSH PRN (09:29)
[2020-06-10] MEDS ORDERED: Sodium Chloride 0.9% 1,000 ML IV SCH (09:30)
[2020-06-10] MEDS ORDERED: Magnesium Sulfate/Water 2 GM/50 ML BAG IV ONE (13:15)
[2020-06-10] MEDS ORDERED: Magnesium Sulfate/Water 2 GM/50 ML Premix Bag IV ONE (13:20)
[2020-06-10 21:28] VITALS: BP 128/74; PULSE 94
== END 2020-06-10 15:30 | disposition home or self-care (01) ==
LOC: FB.ED 08:15
DX: S00.83XA Contusion of other part of head, initial encounter (principal); E83.42 Hypomagnesemia; E87.1 Hypo-osmolality and hyponatremia; I10 Essential (primary) hypertension; E11.9 Type 2 diabetes mellitus without complications; Z20.828 Contact with and (suspected) exposure to other viral communicable diseases; Z79.01 Long term (current) use of anticoagulants; Z79.899 Other long term (current) drug therapy; W01.0XXA Fall on same level from slipping, tripping and stumbling without subsequent striking against object, initial encounter; Y92.009 Unspecified place in unspecified non-institutional (private) residence as the place of occurrence of the external cause
CPT/HCPCS: 36415; 51798; 80048; 80053; 81001; 83735; 83880; 84484; 85025; 87086; 93005; 96365; 99284; 99285; J3475; J7030; U0002

== ENCOUNTER 2021-01-07 20:06 | Emergency (ER) | payer MEDICARE, BC ==
[2021-01-07] MEDS ORDERED: predniSONE 10 MG Tab PO ONE (20:07)
[2021-01-07 20:21] VITALS: BP 107/71; PULSE 101
--- NOTE | 2021-01-07 20:36 | EDM.PDOC ---
ED HPI GENERAL MEDICAL PROBLEM - General Chief Complaint: ENT Problem Stated Complaint: CLOGGED EAR Time Seen by Provider: 01/07/21 20:30 Source of Information: Reports: Patient History Limitations: Reports: No Limitations - History of Present Illness INITIAL COMMENTS - FREE TEXT/NARRATIVE: 80-year-old male who reports approximately and tonight he suddenly felt that his right ear was clogged. He reports it felt like his hearing decreased and he felt like there was water in his right ear. He had no headache associated with this. He had no neck pain or facial pain. In fact, he rates his pain as a 0/10. It was no drainage from the ear. There was no trauma to the ear. He was swallowing well. There was no localized area of weakness or numbness. He had no changes in his vision. He was able to speak normally. He also has had no dizziness or lightheadedness. He has been able to walk normally without any problems. There are no other associated signs or symptoms. There are no other modifying factors. Onset: Today (5 PM) Duration: Constant (Rather sudden onset.) Location: Reports: Other (Right ear.) Quality: Reports: Other (No pain.) Severity: Mild Improves with: Reports: None Worsens with: Reports: None Associated Symptoms: Reports: No Other Symptoms Treatments GSE MECHANIC: Reports: Other (see below) (Nothing.) - Related Data Allergies Allergy/AdvReac Type Severity Reaction Status Date / Time No Known Allergies Allergy Verified 06/08/20 19:23 Home Meds: Home Meds Benzonatate [Tessalon Perle] 100 mg PO TID PRN 04/10/13 [History] Clotrimazole/Betamethasone Dip [Lotrisone Cream] 15 gm TP ASDIRECTED 04/10/13 [History] Doxazosin Mesylate [Cardura] 4 mg PO DAILY 04/10/13 [History] Finasteride [Proscar] 5 mg PO DAILY 04/10/13 [History] Hydrocodone/Acetaminophen [[place] 5-325] 1 tab PO Q4H PRN 04/10/13 [History] Pilocarpine HCl [Salagen] 5 mg PO TID 04/10/13 [History] SitaGLIPtin [Januvia] 100 mg PO DAILY 04/10/13 [History] metFORMIN [Glucophage] 1,000 mg PO BIDM 04/10/13 [History] Levothyroxine [Synthroid] 150 mcg PO ACBREAKFAST 10/18/19 [History] Pioglitazone [Actos] 15 mg PO DAILY 10/18/19 [History] Apixaban [Eliquis] 5 mg BID 06/08/20 [History] oxyCODONE 5 mg Q6H PRN 06/08/20 [History] methylPREDNISolone [Medrol Dose Pack] 4 mg PO ASDIRECTED #1 dospk 01/07/21 [Rx] Past Medical History HEENT History: Reports: Impaired Vision, Other (See Below) Other HEENT History: tonsil cancer, wears glasses Cardiovascular History: Reports: Afib, High Cholesterol, Hypertension Gastrointestinal History: Reports: Other (See Below) Other Gastrointestinal History: 20 yrs ago peg tube insertion for cancer tonsils. Chronic dysphagia Genitourinary History: Reports: Other (See Below) Other Genitourinary History: urethral CA Musculoskeletal History: Reports: Arthritis Other Musculoskeletal History: hx CA with mets to R hip Endocrine/Metabolic History: Reports: Diabetes, Type II Hematologic History: Reports: Anticoagulation Therapy (On Xarelto) Oncologic (Cancer) History: Reports: Bladder, Other (See Below) Other Oncologic History: hx urethral CA with mets R hip, hx malignant neoplasm of base of tongue - Past Surgical History HEENT Surgical History: Reports: Cataract Surgery GI Surgical History: Reports: Hernia Repair/Other Neurological Surgical History: Reports: Other (See Below) Other Neurological Surgeries/Procedures: Back surgery in [place]. Oncologic Surgical History: Reports: Other (See Below) Other Oncologic Surgeries/Procedures: Cancer of jaw area. Social & Family History - Tobacco Use Tobacco Use Status *Q: Former Tobacco User (With smoking about 20 years ago.) - Caffeine Use Caffeine Use: Reports: Coffee Other Caffeine Use: DECAF COFFEE - Alcohol Use Alcohol Use History: Yes Alcohol Use Frequency: Rarely (Occasional wine.) - Recreational Drug Use Recreational Drug Use: No - Living Situation & Occupation Occupation: Retired Social History Comment: He is here with his grandson. ED ROS ENT - Review of Systems Review Of Systems: See Below Constitutional: Denies: Fever, Chills, Malaise HEENT: Reports: Other (Right ear appears to be plugged.). Denies: Dental Pain, Throat Pain Respiratory: Reports: Cough (Chronic.). Denies: Shortness of Breath Cardiovascular: Denies: Chest Pain, Lightheadedness Endocrine: Denies: Fatigue GI/Abdominal: Denies: Abdominal Pain, Diarrhea : Denies: Dysuria, Frequency Musculoskeletal: Denies: Neck Pain, Back Pain Skin: Denies: Rash, Urticaria Neurological: Denies: Dizziness, Headache, Numbness, Weakness Psychiatric: Denies: Anxiety, Confusion Hematologic/Lymphatic: Reports: Easy Bleeding (On Xarelto). Denies: Anemia Immunologic: Reports: No Symptoms ED EXAM, ENT - Physical Exam Exam: See Below Exam Limited By: No Limitations General Appearance: Alert, WD/WN, No Apparent Distress Eye Exam: Bilateral Eye: EOMI, Normal Inspection Ears: Normal External Exam, Hearing Loss (In right ear.). No: Canal Discharge, TM Bulging, TM Fluid Nose: Normal Inspection, Normal Mucousa, No Blood Mouth/Throat: Normal Lips, Normal Oropharynx Head: Atraumatic, Normocephalic Neck: Normal Inspection, Supple, Non-Tender, Full Range of Motion Respiratory/Chest: No Respiratory Distress, Lungs Clear, Normal Breath Sounds, No Accessory Muscle Use Cardiovascular: Normal Peripheral Pulses, Regular Rate, Rhythm, No Gallop, No JVD GI/Abdominal: Normal Bowel Sounds, Soft, Non-Tender, No Mass Back: Normal Inspection, Full Range of Motion Extremities: Normal Inspection, Normal Range of Motion, No Pedal Edema, Normal Capillary Refill Neurological: Alert, Oriented, CN II-XII Intact, Normal Cognition, Normal Gait, No Motor/Sensory Deficits Psychiatric: Normal Affect Skin: Warm, Dry, Intact, Normal Color, No Rash Course - Vital Signs Last Recorded V/S: Last Vital Signs Temp 37.5 C 01/07/21 20:18 Pulse 101 H 01/07/21 20:18 Resp 18 01/07/21 20:18 BP 107/71 01/07/21 20:18 Pulse Ox 97 01/07/21 20:18 - Re-Assessments/Exams Free Text/Narrative Re-Assessment/Exam: 01/07/21 20:45: Elderly male with acute onset of feeling plugged in his right ear with slight decrease in hearing. He has had no trauma to his ear. He has no weakness and no dizziness. There are no other symptoms besides the feeling of plugging of his right ear. His exam is normal. I am unsure why he is having the acute hearing loss in his right ear. 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 He is to follow-up with his primary provider next week as he may need ENT referral. Precautions and reasons for return to the emergency department were discussed with the patient while he was in the emergency department and were detailed in his discharge instructions. Departure - Departure Time of Disposition: 20:55 Disposition: Home, Self-Care 01 Condition: Fair (Unchanged.) Clinical Impression: Acute hearing loss of right ear - Discharge Information Prescriptions: methylPREDNISolone [Medrol Dose Pack] 4 mg PO ASDIRECTED #1 dospk Referrals: Simba Gomez MD [Primary Care Provider] - Forms: ED Department Discharge Additional Instructions: There was no wax or anything plugging your right ear canal. It was clear and your eardrum looked normal in your right ear. I am unsure why you had the acute decrease in hearing in your right ear. You did not appear to have any other symptoms. I am placing you on a steroid medication (Medrol Dosepak) a trial of treatment for this. You need to follow-up with Dr. Gomez this coming week as you may need referral to an ear nose and throat doctor. I have given you prednisone to take for the next 2 days and you will begin the Medrol dosepak on 01/09/2021 (I sent this prescription to your pharmacy in [facility]). This medication can sometimes cause your blood sugar to elevate. If your blood sugar becomes too high (200-250) consistently, you should stop the medication. Back to the emergency department for severe headache, localized area of weakness or numbness any other concerning signs or symptoms. Sepsis Event Note (ED) - Evaluation Sepsis Screening Result: No Definite Risk - Focused Exam Vital Signs: Vital Signs Temp Pulse Resp BP Pulse Ox 01/07/21 20:18 37.5 C 101 H 18 107/71 97
== END 2021-01-07 21:06 | disposition home or self-care (01) ==
LOC: FB.ED 20:06
DX: H91.91 Unspecified hearing loss, right ear (principal); E78.00 Pure hypercholesterolemia, unspecified; I10 Essential (primary) hypertension; E11.9 Type 2 diabetes mellitus without complications; Z79.899 Other long term (current) drug therapy; Z79.01 Long term (current) use of anticoagulants; Z87.891 Personal history of nicotine dependence
CPT/HCPCS: 99283; J7512

== ENCOUNTER 2022-03-25 14:10 | Emergency (ER) | payer MEDICARE, BC ==
[2022-03-25 14:36] LABS: ESTIMATED GFR 55 mL/min (>60)
[2022-03-25] MEDS ORDERED: Sodium Chloride 0.9% 1,000 ML IV SCH (15:15)
[2022-03-25] MEDS ORDERED: Heparin Sodium 5,000 Units/ML Vial IVPUSH ONE (16:57)
[2022-03-25] MEDS ORDERED: Aspirin 81 MG Tab.Chew PO ONE (16:57)
[2022-03-25] MEDS ORDERED: Heparin Sodium/0.45% NaCl 500 ML IV SCH (17:00)
[2022-03-25] MEDS ORDERED: Loperamide 2 MG Cap ONE (22:32)
[2022-03-25] MEDS: guaiFENesin 600 MG Tab.ER PO SCH (23:46)
[2022-03-26] MEDS ORDERED: Loperamide 1 MG/7.5 ML 7.5 ML UD Cup PO ONE (00:10)
[2022-03-26] MEDS ORDERED: Loperamide 2 MG Cap PO ONE ×2 (00:11→05:03)
[2022-03-26] MEDS ORDERED: guaiFENesin 600 MG Tab.ER PO SCH (09:00)
[2022-03-26] MEDS ORDERED: Heparin Sodium/0.45% NaCl 25,000 UNITS/500 ML BAG IV SCH (10:00)
[2022-03-26] MEDS ORDERED: Heparin Sodium 5,000 Units/ML Vial IVPUSH ONE (10:00)
[2022-03-26] MEDS ORDERED: Furosemide 40 MG/4 ML VIAL IVPUSH ONE (14:38)
[2022-03-26] MEDS ORDERED: Metolazone 2.5 MG Tab PO ONE (14:38)
[2022-03-26] MEDS: guaiFENesin 600 MG Tab.ER PO SCH (16:03)
[2022-03-26 17:32] VITALS: BP 111/84; PULSE 62
== END 2022-03-26 17:50 ==
LOC: FB.ED 14:10
DX: K52.9 Noninfective gastroenteritis and colitis, unspecified (principal); I21.4 Non-ST elevation (NSTEMI) myocardial infarction; J90 Pleural effusion, not elsewhere classified; I48.91 Unspecified atrial fibrillation; I11.0 Hypertensive heart disease with heart failure; I50.9 Heart failure, unspecified; E03.9 Hypothyroidism, unspecified; D64.9 Anemia, unspecified; E78.00 Pure hypercholesterolemia, unspecified; E11.9 Type 2 diabetes mellitus without complications; Z79.84 Long term (current) use of oral hypoglycemic drugs; Z79.899 Other long term (current) drug therapy; Z87.891 Personal history of nicotine dependence; Z20.822 Contact with and (suspected) exposure to COVID-19
CPT/HCPCS: 36410; 36415; 71045; 73502; 80053; 83880; 84484; 85025; 85610; 85730; 87230; 93005; 96365; 96366; 96375; 96376; 99285; A9270; J1644; J1940; U0002

== ENCOUNTER 2022-04-12 10:44 | Inpatient (IN) | payer MEDICARE, BC ==
[2022-04-12] MEDS ORDERED: Prochlorperazine 10 MG Tab GTUBE PRN (13:10)
[2022-04-12] MEDS ORDERED: hydrOXYzine HCl 25 MG Tab GTUBE PRN (13:32)
[2022-04-12] MEDS: Morphine 15 MG Tab GTUBE PRN ×2 (14:21→21:25)
[2022-04-12] MEDS: Nystatin Susp 100,000 Unit/ML 5 ML UD Cup PO SCH ×2 (17:02→21:15)
[2022-04-12] MEDS ORDERED: Acetaminophen 325 MG Tab ONE (18:26)
[2022-04-12] MEDS ORDERED: Acetaminophen 500 MG Tab PO PRN (18:27)
[2022-04-12] MEDS ORDERED: Acetaminophen 325 MG Tab PO ONE (18:30)
[2022-04-12] MEDS: Calcium Carbonate 500 MG Tablet GTUBE SCH (18:44)
[2022-04-12] MEDS: metFORMIN 1,000 MG Tab GTUBE SCH (18:44)
[2022-04-12] MEDS: Melatonin 3 MG Tab GTUBE SCH (21:14)
[2022-04-12] MEDS: Acetaminophen/Diphenhydramine 500-25 MG Tab GTUBE SCH (21:23)
[2022-04-12] MEDS: Metoprolol Tartrate 25 MG Tab GTUBE SCH (22:13)
[2022-04-12] MEDS: Doxazosin 2 MG Tab GTUBE SCH (22:14)
[2022-04-13] MEDS: Morphine 15 MG Tab GTUBE PRN ×3 (04:29→17:08)
[2022-04-13] MEDS: metFORMIN 1,000 MG Tab GTUBE SCH ×2 (08:45→17:06)
[2022-04-13] MEDS: Calcium Carbonate 500 MG Tablet GTUBE SCH ×2 (08:45→17:05)
[2022-04-13] MEDS: Budesonide 3 MG Cap.ER GTUBE SCH (08:46)
[2022-04-13] MEDS: Potassium Chloride 10 MEQ Tab.ER GTUBE SCH (08:47)
[2022-04-13] MEDS: Amiodarone 200 MG Tab GTUBE SCH (08:47)
[2022-04-13] MEDS: Magnesium Oxide 400 MG Tab GTUBE SCH (08:47)
[2022-04-13] MEDS: Metoprolol Tartrate 25 MG Tab GTUBE SCH ×2 (08:47→21:03)
[2022-04-13] MEDS: Allopurinol 100 MG Tab GTUBE SCH (08:48)
[2022-04-13] MEDS: Nystatin Susp 100,000 Unit/ML 5 ML UD Cup PO SCH ×4 (09:12→21:04)
[2022-04-13] MEDS: Melatonin 3 MG Tab GTUBE SCH (21:00)
[2022-04-13] MEDS: Acetaminophen/Diphenhydramine 500-25 MG Tab GTUBE SCH (21:01)
[2022-04-13] MEDS: Doxazosin 2 MG Tab GTUBE SCH (21:03)
[2022-04-14] MEDS: Morphine 15 MG Tab GTUBE PRN ×4 (01:25→20:46)
[2022-04-14] MEDS: Acetaminophen 500 MG Tab GTUBE PRN ×2 (05:54→17:02)
[2022-04-14] MEDS: Budesonide 3 MG Cap.ER GTUBE SCH (08:17)
[2022-04-14] MEDS: Calcium Carbonate 500 MG Tablet GTUBE SCH ×2 (08:19→17:02)
[2022-04-14] MEDS: Allopurinol 100 MG Tab GTUBE SCH (08:19)
[2022-04-14] MEDS: metFORMIN 1,000 MG Tab GTUBE SCH ×2 (08:21→17:02)
[2022-04-14] MEDS: Amiodarone 200 MG Tab GTUBE SCH (08:21)
[2022-04-14] MEDS: Potassium Chloride 10 MEQ Tab.ER GTUBE SCH (08:22)
[2022-04-14] MEDS: Metoprolol Tartrate 25 MG Tab GTUBE SCH ×2 (08:23→20:47)
[2022-04-14] MEDS: Magnesium Oxide 400 MG Tab GTUBE SCH (08:34)
[2022-04-14] MEDS: Nystatin Susp 100,000 Unit/ML 5 ML UD Cup PO SCH ×5 (08:35→20:48)
[2022-04-14] MEDS: Doxazosin 2 MG Tab GTUBE SCH (20:47)
[2022-04-14] MEDS: Acetaminophen/Diphenhydramine 500-25 MG Tab GTUBE SCH (20:48)
[2022-04-14] MEDS: Melatonin 3 MG Tab GTUBE SCH (20:50)
[2022-04-15] MEDS: Acetaminophen 500 MG Tab GTUBE PRN ×4 (00:03→18:12)
[2022-04-15] MEDS: Morphine 15 MG Tab GTUBE PRN ×4 (02:37→21:08)
[2022-04-15] MEDS: Potassium Chloride 10 MEQ Tab.ER GTUBE SCH (08:50)
[2022-04-15] MEDS: Budesonide 3 MG Cap.ER GTUBE SCH (08:51)
[2022-04-15] MEDS: Magnesium Oxide 400 MG Tab GTUBE SCH (08:51)
[2022-04-15] MEDS: metFORMIN 1,000 MG Tab GTUBE SCH ×2 (08:51→17:00)
[2022-04-15] MEDS: Calcium Carbonate 500 MG Tablet GTUBE SCH ×2 (08:51→17:00)
[2022-04-15] MEDS: Metoprolol Tartrate 25 MG Tab GTUBE SCH ×2 (08:52→20:38)
[2022-04-15] MEDS: Nystatin Susp 100,000 Unit/ML 5 ML UD Cup PO SCH ×3 (08:53→10:39)
[2022-04-15] MEDS: Amiodarone 200 MG Tab GTUBE SCH (08:53)
[2022-04-15] MEDS: Allopurinol 100 MG Tab GTUBE SCH (08:54)
[2022-04-15] MEDS: fentaNYL 25 MCG/HR Transdermal Patch TRDERM SCH (17:48)
[2022-04-15] MEDS: Acetaminophen/Diphenhydramine 500-25 MG Tab GTUBE SCH (20:35)
[2022-04-15] MEDS: Doxazosin 2 MG Tab GTUBE SCH (20:38)
[2022-04-15] MEDS: Melatonin 3 MG Tab GTUBE SCH (20:40)
[2022-04-16] MEDS: Acetaminophen 500 MG Tab GTUBE PRN ×3 (01:44→18:24)
[2022-04-16] MEDS: Morphine 15 MG Tab GTUBE PRN ×2 (06:03→20:50)
[2022-04-16] MEDS: Allopurinol 100 MG Tab GTUBE SCH (09:00)
[2022-04-16] MEDS: Magnesium Oxide 400 MG Tab GTUBE SCH (09:00)
[2022-04-16] MEDS: Budesonide 3 MG Cap.ER GTUBE SCH (09:00)
[2022-04-16] MEDS: Calcium Carbonate 500 MG Tablet GTUBE SCH ×2 (09:00→18:25)
[2022-04-16] MEDS: metFORMIN 1,000 MG Tab GTUBE SCH ×2 (09:00→18:25)
[2022-04-16] MEDS: Amiodarone 200 MG Tab GTUBE SCH (09:00)
[2022-04-16] MEDS: Metoprolol Tartrate 25 MG Tab GTUBE SCH ×2 (09:00→21:00)
[2022-04-16] MEDS: Potassium Chloride 10 MEQ Tab.ER GTUBE SCH (09:00)
[2022-04-16] MEDS: Nystatin Susp 100,000 Unit/ML 5 ML UD Cup PO SCH (09:15)
[2022-04-16] MEDS: Melatonin 3 MG Tab GTUBE SCH (20:52)
[2022-04-16] MEDS: Acetaminophen/Diphenhydramine 500-25 MG Tab GTUBE SCH (20:54)
[2022-04-16] MEDS: Doxazosin 2 MG Tab GTUBE SCH (20:54)
[2022-04-17] MEDS: Morphine 15 MG Tab GTUBE PRN ×3 (02:14→18:55)
[2022-04-17] MEDS: Calcium Carbonate 500 MG Tablet GTUBE SCH ×2 (08:37→18:42)
[2022-04-17] MEDS: metFORMIN 1,000 MG Tab GTUBE SCH ×2 (08:37→18:43)
[2022-04-17] MEDS: Budesonide 3 MG Cap.ER GTUBE SCH (08:54)
[2022-04-17] MEDS: Potassium Chloride 10 MEQ Tab.ER GTUBE SCH (08:55)
[2022-04-17] MEDS: Amiodarone 200 MG Tab GTUBE SCH (08:55)
[2022-04-17] MEDS: Allopurinol 100 MG Tab GTUBE SCH (08:56)
[2022-04-17] MEDS: Magnesium Oxide 400 MG Tab GTUBE SCH (08:56)
[2022-04-17] MEDS: Nystatin Susp 100,000 Unit/ML 5 ML UD Cup PO SCH (08:57)
[2022-04-17] MEDS: Metoprolol Tartrate 25 MG Tab GTUBE SCH ×2 (08:58→21:11)
[2022-04-17] MEDS: Acetaminophen 500 MG Tab GTUBE PRN ×2 (13:03→18:58)
[2022-04-17] MEDS: Doxazosin 2 MG Tab GTUBE SCH (21:11)
[2022-04-17] MEDS: Melatonin 3 MG Tab GTUBE SCH (21:11)
[2022-04-17] MEDS: Acetaminophen/Diphenhydramine 500-25 MG Tab GTUBE SCH (21:14)
[2022-04-18] MEDS: Morphine 15 MG Tab GTUBE PRN ×3 (01:24→21:25)
[2022-04-18] MEDS: Acetaminophen 500 MG Tab GTUBE PRN ×2 (07:06→18:19)
[2022-04-18] MEDS: Calcium Carbonate 500 MG Tablet GTUBE SCH ×2 (08:22→19:08)
[2022-04-18] MEDS: Magnesium Oxide 400 MG Tab GTUBE SCH (08:22)
[2022-04-18] MEDS: Metoprolol Tartrate 25 MG Tab GTUBE SCH ×2 (08:22→21:25)
[2022-04-18] MEDS: Nystatin Susp 100,000 Unit/ML 5 ML UD Cup PO SCH (08:22)
[2022-04-18] MEDS: Allopurinol 100 MG Tab GTUBE SCH (08:22)
[2022-04-18] MEDS: Budesonide 3 MG Cap.ER GTUBE SCH (08:23)
[2022-04-18] MEDS: Potassium Chloride 10 MEQ Tab.ER GTUBE SCH (08:23)
[2022-04-18] MEDS: metFORMIN 1,000 MG Tab GTUBE SCH ×2 (08:26→19:09)
[2022-04-18] MEDS: Amiodarone 200 MG Tab GTUBE SCH (08:27)
[2022-04-18] MEDS: REMOVE FENTANYL TRDERM SCH (17:19)
[2022-04-18] MEDS: fentaNYL 25 MCG/HR Transdermal Patch TRDERM SCH (17:20)
[2022-04-18] MEDS: Doxazosin 2 MG Tab GTUBE SCH (21:25)
[2022-04-18] MEDS: Acetaminophen/Diphenhydramine 500-25 MG Tab GTUBE SCH (21:25)
[2022-04-18] MEDS: Melatonin 3 MG Tab GTUBE SCH (21:26)
[2022-04-19] MEDS: Morphine 15 MG Tab GTUBE PRN ×4 (03:55→23:17)
[2022-04-19] MEDS: Acetaminophen 500 MG Tab GTUBE PRN ×2 (06:10→13:03)
[2022-04-19] MEDS: Allopurinol 100 MG Tab GTUBE SCH (09:23)
[2022-04-19] MEDS: Budesonide 3 MG Cap.ER GTUBE SCH (09:23)
[2022-04-19] MEDS: Magnesium Oxide 400 MG Tab GTUBE SCH (09:24)
[2022-04-19] MEDS: Calcium Carbonate 500 MG Tablet GTUBE SCH ×2 (09:24→17:51)
[2022-04-19] MEDS: metFORMIN 1,000 MG Tab GTUBE SCH ×2 (09:24→17:51)
[2022-04-19] MEDS: Potassium Chloride 10 MEQ Tab.ER GTUBE SCH (09:25)
[2022-04-19] MEDS: Nystatin Susp 100,000 Unit/ML 5 ML UD Cup PO SCH (09:25)
[2022-04-19] MEDS: Amiodarone 200 MG Tab GTUBE SCH (09:25)
[2022-04-19] MEDS: Metoprolol Tartrate 25 MG Tab GTUBE SCH ×2 (09:26→20:55)
[2022-04-19] MEDS: Doxazosin 2 MG Tab GTUBE SCH (20:54)
[2022-04-19] MEDS: Melatonin 3 MG Tab GTUBE SCH (20:54)
[2022-04-19] MEDS: Acetaminophen/Diphenhydramine 500-25 MG Tab GTUBE SCH (21:01)
[2022-04-20] MEDS: Acetaminophen 500 MG Tab GTUBE PRN ×3 (03:00→17:11)
[2022-04-20] MEDS: Morphine 15 MG Tab GTUBE PRN ×3 (06:00→19:32)
[2022-04-20] MEDS: Calcium Carbonate 500 MG Tablet GTUBE SCH ×2 (07:04→18:33)
[2022-04-20] MEDS: metFORMIN 1,000 MG Tab GTUBE SCH ×2 (07:04→18:33)
[2022-04-20] MEDS: Magnesium Oxide 400 MG Tab GTUBE SCH (09:33)
[2022-04-20] MEDS: Metoprolol Tartrate 25 MG Tab GTUBE SCH ×2 (09:33→21:38)
[2022-04-20] MEDS: Potassium Chloride 10 MEQ Tab.ER GTUBE SCH (09:33)
[2022-04-20] MEDS: Amiodarone 200 MG Tab GTUBE SCH (09:33)
[2022-04-20] MEDS: Budesonide 3 MG Cap.ER GTUBE SCH (09:34)
[2022-04-20] MEDS: Allopurinol 100 MG Tab GTUBE SCH (09:34)
[2022-04-20] MEDS: Nystatin Susp 100,000 Unit/ML 5 ML UD Cup PO SCH (09:35)
[2022-04-20] MEDS ORDERED: Bisacodyl 10 MG Supp RECTAL PRN (16:41)
[2022-04-20] MEDS: Acetaminophen/Diphenhydramine 500-25 MG Tab GTUBE SCH (21:36)
[2022-04-20] MEDS: Melatonin 3 MG Tab GTUBE SCH (21:39)
[2022-04-20] MEDS: Doxazosin 2 MG Tab GTUBE SCH (21:39)
[2022-04-21] MEDS: Morphine 15 MG Tab GTUBE PRN ×3 (02:00→16:17)
[2022-04-21] MEDS: metFORMIN 1,000 MG Tab GTUBE SCH ×2 (08:09→18:21)
[2022-04-21] MEDS: Calcium Carbonate 500 MG Tablet GTUBE SCH ×2 (08:10→18:21)
[2022-04-21] MEDS: Budesonide 3 MG Cap.ER GTUBE SCH (08:10)
[2022-04-21] MEDS: Allopurinol 100 MG Tab GTUBE SCH (08:11)
[2022-04-21] MEDS: Magnesium Oxide 400 MG Tab GTUBE SCH (08:11)
[2022-04-21] MEDS: Potassium Chloride 10 MEQ Tab.ER GTUBE SCH (08:12)
[2022-04-21] MEDS: Nystatin Susp 100,000 Unit/ML 5 ML UD Cup PO SCH (08:12)
[2022-04-21] MEDS: Amiodarone 200 MG Tab GTUBE SCH (08:12)
[2022-04-21] MEDS ORDERED: Lidocaine 2% HCl 6 ML Jel ONE ×2 (08:25→17:49)
[2022-04-21] MEDS: Metoprolol Tartrate 25 MG Tab GTUBE SCH ×2 (08:53→22:10)
[2022-04-21] MEDS: Lactulose Soln 10 GM/15 ML 15 ML UD Cup PO SCH ×2 (13:09→21:12)
[2022-04-21] MEDS: Acetaminophen 500 MG Tab GTUBE PRN (13:30)
[2022-04-21] MEDS: fentaNYL 25 MCG/HR Transdermal Patch TRDERM SCH (17:13)
[2022-04-21] MEDS: REMOVE FENTANYL TRDERM SCH (17:14)
[2022-04-21] MEDS: Acetaminophen/Diphenhydramine 500-25 MG Tab GTUBE SCH (20:50)
[2022-04-21] MEDS: Melatonin 3 MG Tab GTUBE SCH (20:51)
[2022-04-21] MEDS: Doxazosin 2 MG Tab GTUBE SCH (22:06)
[2022-04-22] MEDS: Budesonide 3 MG Cap.ER GTUBE SCH (08:38)
[2022-04-22] MEDS: Allopurinol 100 MG Tab GTUBE SCH (08:39)
[2022-04-22] MEDS: Amiodarone 200 MG Tab GTUBE SCH (08:39)
[2022-04-22] MEDS: Calcium Carbonate 500 MG Tablet GTUBE SCH ×2 (08:39→17:27)
[2022-04-22] MEDS: Potassium Chloride 10 MEQ Tab.ER GTUBE SCH (08:40)
[2022-04-22] MEDS: Nystatin Susp 100,000 Unit/ML 5 ML UD Cup PO SCH (08:40)
[2022-04-22] MEDS: Magnesium Oxide 400 MG Tab GTUBE SCH (08:40)
[2022-04-22] MEDS: metFORMIN 1,000 MG Tab GTUBE SCH ×2 (08:41→17:27)
[2022-04-22] MEDS: Metoprolol Tartrate 25 MG Tab GTUBE SCH ×2 (08:41→21:06)
[2022-04-22] MEDS: Lactulose Soln 10 GM/15 ML 15 ML UD Cup PO SCH ×2 (08:42→21:09)
[2022-04-22] MEDS ORDERED: Lidocaine 2% HCl 6 ML Jel STA (17:51)
[2022-04-22] MEDS ORDERED: Sodium Phosphate,Monobasic/Sodium Phosphate,Dibasic Enema 133 ML Bottle RECTAL PRN (18:31)
[2022-04-22] MEDS: Acetaminophen/Diphenhydramine 500-25 MG Tab GTUBE SCH (21:05)
[2022-04-22] MEDS: Doxazosin 2 MG Tab GTUBE SCH (21:06)
[2022-04-22] MEDS: Melatonin 3 MG Tab GTUBE SCH (21:06)
[2022-04-23] MEDS: metFORMIN 1,000 MG Tab GTUBE SCH (08:50)
[2022-04-23] MEDS: Calcium Carbonate 500 MG Tablet GTUBE SCH (08:50)
[2022-04-23] MEDS: Lactulose Soln 10 GM/15 ML 15 ML UD Cup PO SCH (08:52)
[2022-04-23] MEDS: Nystatin Susp 100,000 Unit/ML 5 ML UD Cup PO SCH (08:54)
[2022-04-23] MEDS: Amiodarone 200 MG Tab GTUBE SCH (08:57)
[2022-04-23] MEDS: Budesonide 3 MG Cap.ER GTUBE SCH (08:57)
[2022-04-23] MEDS: Potassium Chloride 10 MEQ Tab.ER GTUBE SCH (08:58)
[2022-04-23] MEDS: Allopurinol 100 MG Tab GTUBE SCH (08:58)
[2022-04-23] MEDS: Metoprolol Tartrate 25 MG Tab GTUBE SCH (08:58)
[2022-04-23] MEDS: Magnesium Oxide 400 MG Tab GTUBE SCH (08:58)
[2022-04-23 09:00] VITALS: BP 118/78; PULSE 61
== END 2022-04-23 14:25 | disposition home health service (06) | DRG 947 ==
LOC: FB.MS 12:41
PROVIDERS: ADMIT Family Medicine; ATTEND Student in an Organized Health Care Education/Training Program
DX: R53.1 Weakness (principal); I21.3 ST elevation (STEMI) myocardial infarction of unspecified site; K25.0 Acute gastric ulcer with hemorrhage; I82.412 Acute embolism and thrombosis of left femoral vein; Z51.5 Encounter for palliative care; Z66 Do not resuscitate; D64.9 Anemia, unspecified; I65.22 Occlusion and stenosis of left carotid artery; E11.622 Type 2 diabetes mellitus with other skin ulcer; I48.91 Unspecified atrial fibrillation; Z96.0 Presence of urogenital implants; C14.0 Malignant neoplasm of pharynx, unspecified; Z79.84 Long term (current) use of oral hypoglycemic drugs; Z79.890 Hormone replacement therapy; Z79.899 Other long term (current) drug therapy; L89.151 Pressure ulcer of sacral region, stage 1; C60.9 Malignant neoplasm of penis, unspecified; Z93.1 Gastrostomy status; H54.7 Unspecified visual loss; E78.00 Pure hypercholesterolemia, unspecified; I25.2 Old myocardial infarction; M19.90 Unspecified osteoarthritis, unspecified site; Z79.01 Long term (current) use of anticoagulants; Z87.891 Personal history of nicotine dependence
CPT/HCPCS: 36415; 82947; 85014; 85018; 94150; 97110-GP; 97116-GP; 97161-GP; 97166-GO; 97530-GO; 97530-GP; 97535-GO; 99306; 99316; A9270-GY

== ENCOUNTER 2022-05-10 23:43 | Emergency (ER) | payer MEDICARE, BC ==
[2022-05-10] MEDS ORDERED: Norepinephrine Bit/D5W Premix 250 ML ONE (23:57)
[2022-05-11] MEDS ORDERED: Norepinephrine Bit/D5W Premix 4 MG in Premix Bag 1 BAG IV SCH (00:15)
[2022-05-11] MEDS ORDERED: Sodium Chloride 0.9% 1,000 ML IV SCH ×2 (00:15→01:30)
[2022-05-11 00:19] LABS: ESTIMATED GFR 29 mL/min (>60)
[2022-05-11] MEDS ORDERED: Piperacillin/Tazobactam 4.5 GM in Sodium Chloride 0.9% 100 ML IV ONE (00:23)
[2022-05-11 00:25] LABS: PO2 ARTERIAL,POC 302 mmHg (83-108)
[2022-05-11] MEDS ORDERED: VANCOmycin 2 GM/400 ML 2 GM in Premix Bag 1 BAG IV ONE (00:51)
[2022-05-11] MEDS ORDERED: Sodium Bicarbonate 8.4% 50 MEQ/50 ML Syringe IVPUSH ONE (00:53)
== END 2022-05-11 03:50 ==
LOC: FB.ED 23:43
DX: I46.9 Cardiac arrest, cause unspecified (principal); J96.00 Acute respiratory failure, unspecified whether with hypoxia or hypercapnia; D64.89 Other specified anemias; E78.00 Pure hypercholesterolemia, unspecified; I10 Essential (primary) hypertension; I25.2 Old myocardial infarction; E11.9 Type 2 diabetes mellitus without complications; Z79.899 Other long term (current) drug therapy; Z79.84 Long term (current) use of oral hypoglycemic drugs; W06.XXXA Fall from bed, initial encounter
CPT/HCPCS: 31500; 36415; 36680; 71045; 71250; 74176; 80053; 80307; 82274; 82803; 83605; 83880; 84484; 85025; 86140; 87040; 87077; 92950; 93005; 96365; 96366; 96368; 96375; 99285; J2543; J3370; J7030